=== PATIENT | male | born 1980 | race Caucasian/White ===

== ENCOUNTER 2023-07-15 10:03 | Emergency (ER) | payer SELFPAY ==
[2023-07-15 10:06] VITALS: BP 164/101; PULSE 99; RESP 16; TEMP 36.1; O2SAT 96; BMI 29.9
--- NOTE | 2023-07-15 10:24 | EX.ED.VIS.PS ---
HPI HPI - Psych History of Present Illness Chief Complaint: Mental Health Informant: patient and parent Narrative Narrative: Patient is a 42-year-old male with a reported history of paranoid schizophrenia presenting with mother for concern of worsening mental health. Patient lives with mother. Mother reports has been off his meds for quite a while . She states that he cannot keep a job and cannot afford and does not have any income or insurance. He has had increasingly bizarre behavior lately and recently took his mother shoes and they cannot find him, he threw tantrum yesterday because he could not catch a check but she is not his legal guardian so she can help him. He throughout his mother's diabetic medications. He has been staring off into space and not concentrating. She reports delusions and states is not sleeping. She states he last slept for about 3 hours the night before last. Patient states he has been sleeping and he slept for 7 to 8 hours. Patient only intermittently answers questions and otherwise just stares at me. Has no physical complaints at this time. No report of any HI, SI. Patient currently denies any auditory visual hallucinations. Mother states he has a court order to see counselor but is not currently seeing anyone. PFSH PFSH Home Medications NK 07/15/23 [History Last Taken Unknown] Allergy/AdvReac Type Severity Reaction Status Date / Time No Known Allergies Allergy Verified 07/15/23 10:05 Social History Smoking Status: Current every day smoker tobacco type: cigarettes ROS ROS ED Constitutional Constitutional ED: Denies chills or fever(s) Cardiovascular Cardiovascular: Denies chest pain Respiratory/Chest Respiratory/Chest: Denies cough Gastrointestinal Gastrointestinal: Denies nausea or vomiting Neurologic Neurologic: Denies headache(s) Psychiatric Psychiatric: Reports other Details: Mother reports abnormal behavior ; Denies anxiety, depression, suicidal ideation or suicidal thoughts EXAM Physical Exam Const Vital Signs: 07/15/23 10:06 Temperature 96.9 F L Temperature Source Temporal Pulse Rate 99 Respiratory Rate 16 Blood Pressure 164/101 H Blood Pressure Mean 122 Pulse Ox 96 Oxygen Delivery Method Room Air Positive well nourished and well developed General Appearance ED: well developed and NAD HEENT Reports moist mucous membranes Neck supple Resp normal respiratory effort and clear to auscultation bilaterally Cardio no murmurs Rate: regular rate Rhythm: regular rhythm Extremity normal to inspection Neuro oriented x3 Sensorium / Orientation: alert Motor Exam: muscle tone normal throughout; Negative for general weakness Psych cooperative and affect normal Appearance: grossly normal and appropriate Attitude: calm Activity / Motor Behavior: appropriate eye contact Speech: minimal Mood & Affect: Negative for depressed, elevated mood or labile affect Thought Content: No suicidality, No homicidality, No delusion(s), No hallucination(s) and depersonalization Attention / Concentration: attention grossly intact and concentration grossly impaired Memory / Cognition: memory grossly impaired Insight: limited Judgement: fair Skin Rashes: no rashes MDM MDM MDM Narrative Medical decision making narrative: Patient is evaluated for concern of progression of his schizophrenia. Patient does not appear to be risk himself or others however mother is concerned about his mental health and would like evaluation. Patient is cooperative with this. Patient does seem off but does not have history of behavior concerning for decompensated schizophrenia requiring emergent psychiatric inpatient care. I spoke with Keerthi at the counseling center who states that he actually had an in-house assessment on 06/30 and the story sounds very similar to what he was experiencing 2 weeks ago as well. At that time he did not meet inpatient criteria. He has appointment for a month from now however I do not think it would be prudent to wait that long. She can see him over the next few days and patient and mother are able to go on Thursday between 1 and 2. This is confirmed with Keerthi from the counseling center. Patient's medical workup was largely normal he just has a mild hyperglycemia. Will be given referral for outpatient PCP. Will not start any diabetic medications at this time. Mother counseled that if he has a progression of his symptoms or if they have further concerns he should return to the emergency room. Patient mother agreeable with this plan of care and felt comfortable being discharged in the ER at this time. Lab Data Attestation: I reviewed the patient's lab results. Labs: Laboratory Results - last 24 hr 07/15/23 10:20 WBC 11.6 H RBC 4.88 Hgb 14.8 Hct 43.3 MCV 88.7 MCH 30.3 MCHC 34.2 RDW Std Deviation 42.7 RDW Coeff of Calos 13.1 Plt Count 252 MPV 10.2 Immature Gran % (Auto) 0.400 Neut % (Auto) 77.7 H Lymph % (Auto) 14.4 L [place] % (Auto) 6.0 Eos % (Auto) 1.0 Baso % (Auto) 0.5 Absolute Neuts (auto) 9.0 H Absolute Lymphs (auto) 1.67 Nucleated RBC % 0 Sodium 136 Potassium 4.1 Chloride 103 Carbon Dioxide 30.0 Anion Gap 3 L BUN 6 L Creatinine 0.92 Estim Creat Clear Calc 134.55 Est GFR (MDRD) Af Amer 116 Est GFR (MDRD) Non-Af 96 BUN/Creatinine Ratio 6.5 L Glucose 216 H Calcium 9.2 Urine Opiates Screen NEGATIVE Urine Methadone Screen NEGATIVE Ur Barbiturates Screen NEGATIVE Ur Phencyclidine Scrn NEGATIVE Ur Amphetamines Screen NEGATIVE MDMA (Ecstasy) Screen NEGATIVE U Benzodiazepines Scrn NEGATIVE Urine Cocaine Screen NEGATIVE U Cannabinoids Screen NEGATIVE Ur Drug Screen Comment Ethyl Alcohol < 3.0 Management Discussion w/another healthcare provider: Behavioral health (Arrange for close outpatient behavioral health follow-up through the counseling center. Discussed need for likely case management as well which [facility] will also work on arranging.) Treatment and Re-Evaluation Narrative: Patient remains calm and cooperative in the emergency room Discharge Plan Triage Chief Complaint: Mental Health ED Provider: Diane Cheney Dx/Rx/DC Orders Clinical Impression: Blood glucose elevated, Mental health problem Instructions: ED Schizophrenia, General Prescriptions: No Action NK Referrals: Counseling,Center [Group of Physicians] - (Please follow-up on Thursday at 1 PM) Janie Collins [Non-Staff] - Activity Restrictions/Additional Instructions: The counseling center will try to contact you. Oscar will call to register you for your appointment. Please also follow-up with Janie barroso for medical outpatient follow-up. Disposition Disposition: Home, Self Care
--- NOTE | 2023-07-15 10:30 | ED.RN ---
NO OLD EKG
[2023-07-15 10:36] LABS: Absolute Lymphocyte Count 1.67 X10^3/uL (0.83-4.51); Basophil# 0.06 X10^3/uL; Basophil% 0.5 % (0-1); Eosinophil# 0.11 X10^3/uL; Hematocrit 43.3 % (40-54); Hemoglobin 14.8 g/dL (13.0-16.5); Lymphocyte # 1.67 X10^3/ul (0.83-4.51); Lymphocyte % 14.4 % (19-41); Mean Corp Hgb Conc 34.2 g/dL (32-36); Mean Corpuscular Hgb 30.3 pg (27.0-32.0); Mean Corpuscular Volume 88.7 fL (80-94); Mean Platelet Vol. 10.2 fl (6.2-12.0); Monocyte# 0.69 X10^3/uL; NRBC Flagged by Analyzer 0 % (0-5); Neutrophil # 8.98 X10^3/uL (2.7-7.7); Neutrophil % 77.7 % (47-70); Platelet Count 252 K/mm3 (150-450); RBC Distribution Width CV 13.1 % (11.6-14.6); RBC Distribution Width SD 42.7 fl (35.1-43.9); Red Blood Count 4.88 M/mm3 (4.6-6.2); White Blood Count 11.6 K/mm3 (4.4-11.0)
[2023-07-15 10:49] LABS: Anion Gap 3 (5-15); BUN 6 mg/dL (7-18); BUN/Creat Ratio 6.5 RATIO (10-20); Calcium,Total 9.2 mg/dL (8.5-10.1); Chloride 103 mmol/L (98-107); Creatinine, Serum 0.92 mg/dL (0.70-1.30); EST Glomerular Filtration Rate 96 mL/min (>60); Est Glom Filt Rate - Afr Amer 116 mL/min (>60); Estimated Creatinine Clearance 134.55 ml/min; Glucose 216 mg/dL (74-106); Potassium 4.1 mmol/L (3.5-5.1); Sodium Level 136 mmol/L (136-145)
[2023-07-15 10:52] LABS: Amphetamine Urine VISTA NEGATIVE (<1000 ng/mL); Barbiturate Urine VISTA NEGATIVE (< 200 ng/mL); Benzodiazepine Urine VISTA NEGATIVE (< 200 ng/mL); Cocaine Urine VISTA NEGATIVE (< 300 ng/mL); Ecstacy Urine VISTA NEGATIVE (< 500 ng/mL); Methadone Urine VISTA NEGATIVE (< 300 ng/mL); PCP Urine VISTA NEGATIVE (< 25 ng/mL); THC Urine VISTA NEGATIVE (< 50 ng/mL); Vista UDS pH Range 6
[2023-07-15 10:57] LABS: Alcohol, Blood (Medical)-Serum < 3.0 mg/dL
[2023-07-15 11:09] VITALS: BP 127/74; PULSE 83; RESP 16; TEMP 36.4; O2SAT 100
== END 2023-07-15 11:19 | disposition home or self-care (01) ==
PROVIDERS: Emergency Provider Emergency Medicine; Visit Provider Emergency Medicine
DX: R73.9 Hyperglycemia, unspecified (principal); F17.210 Nicotine dependence, cigarettes, uncomplicated; F91.9 Conduct disorder, unspecified; F99 Mental disorder, not otherwise specified
CPT/HCPCS: 80048; 80307; 80320; 85025; 99282; G0480

== ENCOUNTER 2023-07-27 15:01 | Emergency (ER) | payer MEDICAID, SELFPAY ==
[2023-07-27] VITALS (9 sets, daily range): BP systolic 82–164; BP diastolic 44–101; PULSE 60–98; RESP 15–18; TEMP 36.7; O2SAT 95–100; BMI 28.8
--- NOTE | 2023-07-27 15:20 | EDS_ITS ---
HPI HPI - Psych History of Present Illness Chief Complaint: Mental Health Informant: patient Narrative Narrative: Patient presents with pink slip from the counseling center. He has a history of paranoid schizophrenia and reportedly has not been on any medications due to cost. He was seen in the ER roughly 2 weeks ago with close outpatient follow-up with the counseling center. Patient answers limited questions. Soham slip sent from the counseling center documents that he has a court order to seek mental health treatment and he is not following through. They are concerned his ability to care for himself is deteriorating. [facility] Medical History (Updated 07/27/23 @ 20:[address] Isabel Ham MD) Paranoid schizophrenia Home Medications NK 07/15/23 [History Last Taken Unknown] Allergy/AdvReac Type Severity Reaction Status Date / Time No Known Allergies Allergy Verified 07/27/23 15:13 Social History Smoking Status: Current every day smoker tobacco type: cigarettes ROS ROS ED Constitutional Constitutional ED: Denies chills or fever(s) Eyes Eyes: Denies discharge from eye(s) ENT ENT ED: Denies discharge from eye(s), rhinorrhea or sore throat Cardiovascular Cardiovascular: Denies chest pain Respiratory/Chest Respiratory/Chest: Denies cough or dyspnea Gastrointestinal Gastrointestinal: Denies abdominal pain, nausea or vomiting Musculoskeletal Musculoskeletal: Denies extremity pain Integumentary Denies Abrasions or rash Neurologic Neurologic: Denies headache(s) or weakness Psychiatric Psychiatric: Reports other Details: Patient willing to answer any questions regarding mental health. Allergic/Immunologic Allergic/Immunologic ED: Denies lip swelling or urticaria EXAM Physical Exam Const Vital Signs: 07/27/23 15:13 07/27/23 18:34 07/27/23 17:00 Temperature 98.1 F Temperature Source Oral Pulse Rate 89 92 Respiratory Rate 18 18 18 Blood Pressure 139/101 H 164/97 H Blood Pressure Mean 113 119 Pulse Ox 99 97 Oxygen Delivery Method Room Air Room Air Room Air 07/27/23 16:00 07/27/23 19:00 Temperature Temperature Source Pulse Rate Respiratory Rate 18 Blood Pressure 162/95 H Blood Pressure Mean 112 Pulse Ox 95 Oxygen Delivery Method Room Air Positive well nourished and well developed General Appearance ED: well developed Eyes EOMs intact bilaterally Resp normal respiratory effort and clear to auscultation bilaterally Cardio Rate: regular rate Rhythm: regular rhythm GI non-tender Palpation: soft Neuro Neuro Narrative: Patient is alert to himself, birthdate, year. He will not answer when asked about the date or president. Psych Attitude: calm Activity / Motor Behavior: avoids eye contact Speech: minimal Mood & Affect: flat affect Skin Lesions: no lesions Rashes: no rashes MDM MDM MDM Narrative Medical decision making narrative: Labwork for psychiatric clearance obtained. Lab Data Attestation: I reviewed the patient's lab results. Labs: Laboratory Results - last 24 hr 07/27/23 07/27/23 07/27/23 15:25 15:30 19:40 WBC 11.1 H RBC 4.97 Hgb 15.0 Hct 43.5 MCV 87.5 MCH 30.2 MCHC 34.5 RDW Std Deviation 41.3 RDW Coeff of Calos 12.8 Plt Count 253 MPV 9.9 Immature Gran % (Auto) 0.700 Neut % (Auto) 70.7 H Lymph % (Auto) 19.9 [place] % (Auto) 6.7 Eos % (Auto) 1.4 Baso % (Auto) 0.6 Absolute Neuts (auto) 7.8 H Absolute Lymphs (auto) 2.20 Nucleated RBC % 0 Sodium 129 L 137 Potassium 3.6 3.8 Chloride 95 L 102 Carbon Dioxide 29.0 29.0 Anion Gap 5 6 BUN 12 12 Creatinine 0.76 0.75 Estim Creat Clear Calc 155.70 157.78 Est GFR (MDRD) Af Amer 145 148 Est GFR (MDRD) Non-Af 120 122 BUN/Creatinine Ratio 15.7 16.0 Glucose 109 H 144 H Calcium 9.3 8.6 Urine Opiates Screen NEGATIVE Urine Methadone Screen NEGATIVE Ur Barbiturates Screen NEGATIVE Ur Phencyclidine Scrn NEGATIVE Ur Amphetamines Screen NEGATIVE MDMA (Ecstasy) Screen NEGATIVE U Benzodiazepines Scrn NEGATIVE Urine Cocaine Screen NEGATIVE U Cannabinoids Screen NEGATIVE Ur Drug Screen Comment Ethyl Alcohol < 3.0 Treatment and Re-Evaluation Narrative: CBC reveals a white count 11.1 with 70% neutrophils. Hemoglobin 15. Chemistry studies significant for a sodium of 129. Urine tox screen is negative and EtOH is less than 3. Patient became more agitated and tried to leave the emergency room. He did require sedation with 20 mg of IM Geodon. IV line is initiated and patient is given normal saline fluids. Repeat BMP is obtained and sodium is improved to 137. I am notified by staff that patient has been accepted at [place]. Arrangements will be made for transfer. Discharge Plan Triage Chief Complaint: Mental Health ED Provider: Isabel Ham Dx/Rx/DC Orders Clinical Impression: Paranoid schizophrenia Prescriptions: No Action NK Primary Care Provider: Care Physician,No Primary Referrals: Care Physician,No Primary [Primary Care Provider] - Disposition Disposition: Psychiatric Hospital or Unit
--- NOTE | 2023-07-27 15:24 | ED.RN ---
per dr king patient does not require a 1:1 sitter at this time.
[2023-07-27 15:45] LABS: Amphetamine Urine VISTA NEGATIVE (<1000 ng/mL); Barbiturate Urine VISTA NEGATIVE (< 200 ng/mL); Benzodiazepine Urine VISTA NEGATIVE (< 200 ng/mL); Cocaine Urine VISTA NEGATIVE (< 300 ng/mL); Ecstacy Urine VISTA NEGATIVE (< 500 ng/mL); Methadone Urine VISTA NEGATIVE (< 300 ng/mL); PCP Urine VISTA NEGATIVE (< 25 ng/mL); THC Urine VISTA NEGATIVE (< 50 ng/mL); Vista UDS pH Range 6
[2023-07-27 15:48] LABS: Absolute Neutrophil Count 7.8 X10^3/uL (2.0-7.7); Basophil# 0.07 X10^3/uL; Basophil% 0.6 % (0-1); Eosinophil# 0.15 X10^3/uL; Eosinophils% 1.4 % (0-5); Hematocrit 43.5 % (40-54); Lymphocyte % 19.9 % (19-41); Mean Corp Hgb Conc 34.5 g/dL (32-36); Mean Corpuscular Hgb 30.2 pg (27.0-32.0); Mean Corpuscular Volume 87.5 fL (80-94); Mean Platelet Vol. 9.9 fl (6.2-12.0); Monocyte# 0.74 X10^3/uL; Monocyte% 6.7 % (0-10); NRBC Flagged by Analyzer 0 % (0-5); Neutrophil # 7.82 X10^3/uL (2.7-7.7); Neutrophil % 70.7 % (47-70); Platelet Count 253 K/mm3 (150-450); RBC Distribution Width CV 12.8 % (11.6-14.6); RBC Distribution Width SD 41.3 fl (35.1-43.9); Red Blood Count 4.97 M/mm3 (4.6-6.2); White Blood Count 11.1 K/mm3 (4.4-11.0)
[2023-07-27 15:50] LABS: POSITIVE COUNT NO; POSITIVE DIFFERENTIAL NO; POSITIVE MORPHOLOGY NO
[2023-07-27 15:55] LABS: Alcohol, Blood (Medical)-Serum < 3.0 mg/dL
[2023-07-27 15:56] LABS: Anion Gap 5 (5-15); BUN 12 mg/dL (7-18); BUN/Creat Ratio 15.7 RATIO (10-20); Calcium,Total 9.3 mg/dL (8.5-10.1); Chloride 95 mmol/L (98-107); Creatinine, Serum 0.76 mg/dL (0.70-1.30); EST Glomerular Filtration Rate 120 mL/min (>60); Est Glom Filt Rate - Afr Amer 145 mL/min (>60); Glucose 109 mg/dL (74-106); Potassium 3.6 mmol/L (3.5-5.1); Sodium Level 129 mmol/L (136-145)
--- NOTE | 2023-07-27 17:20 | ED.RN ---
Pt is refusing sodium replacement as ordered. Educated on his sodium levels and concern with his level being low. Pt states I'm not going to stay here that long. Can you call me a ride? This RN educated pt that he's unable to leave d/t being pink slipped and what that means. Pt appears shocked and again asks to go home. Ongoing re-education provided. Pt wants cigarette, offered nicotine order if pt will put on gown. Pt not agreeable at this time.
--- NOTE | 2023-07-27 17:40 | ED.RN ---
Pt asked again to remove personal clothing but is non compliant. Pt insists he will not remove his clothing. Pt educated on need for removal and that it has to happen and that we'd rather he do it himself without requiring our assistance but it is his choice. Pt agitated and yelling at staff.
[2023-07-27] MEDS: Ziprasidone IM 20 MG/ML VIAL IM (17:54)
[2023-07-27] MEDS: 0.9% Normal Saline (1000mL) 1,000 ML 150 ML IV (18:17)
[2023-07-27] MEDS: 0.9% Normal Saline (1000mL) 1,000 ML 1000 ML IV (18:17)
[2023-07-27 20:05] LABS: Anion Gap 6 (5-15); BUN 12 mg/dL (7-18); Calcium,Total 8.6 mg/dL (8.5-10.1); Chloride 102 mmol/L (98-107); Creatinine, Serum 0.75 mg/dL (0.70-1.30); EST Glomerular Filtration Rate 122 mL/min (>60); Est Glom Filt Rate - Afr Amer 148 mL/min (>60); Estimated Creatinine Clearance 157.78 ml/min; Glucose 144 mg/dL (74-106); Potassium 3.8 mmol/L (3.5-5.1); Sodium Level 137 mmol/L (136-145)
[2023-07-28] VITALS (9 sets, daily range): BP systolic 92–133; BP diastolic 57–86; PULSE 58–69; RESP 16–19; TEMP 36.6–36.7; O2SAT 92–100
== END 2023-07-28 07:33 ==
PROVIDERS: Emergency Provider Emergency Medicine; Visit Provider Emergency Medicine
DX: F20.0 Paranoid schizophrenia (principal); F17.210 Nicotine dependence, cigarettes, uncomplicated
CPT/HCPCS: 80048; 80307; 80320; 85025; 99283; J7030; A4216; G0480; J3486

== ENCOUNTER 2024-03-02 22:27 | Emergency (ER) | payer MEDICAID, SELFPAY ==
[2024-03-02 22:28] VITALS: BP 176/95; PULSE 114; RESP 25; TEMP 37.2; O2SAT 93
--- NOTE | 2024-03-02 22:45 | EKG12_ITS ---
Test Reason : [facility] Blood Pressure : / mmHG Vent. Rate : 103 BPM Atrial Rate : 103 BPM P-R Int : 164 ms QRS Dur : 086 ms QT Int : 340 ms P-R-T Axes : 067 028 024 degrees QTc Int : 445 ms Sinus tachycardia with Premature atrial complexes Otherwise normal ECG Confirmed by Fabian Torres ([id number]), school photograph editor TERRY DAILEY ([id number]) on 03/04/2024 1:31:37 PM Referred By: Confirmed By:Fabian Torres
[2024-03-02] MEDS: DiphenhydrAMINE 50 MG/ML Syringe 25 MG IM (22:54)
[2024-03-02] MEDS: Haloperidol Lactate 5 MG/ML Vial IM (22:55)
[2024-03-02] MEDS: LORazepam 2 MG/ML Syringe IM (22:55)
--- NOTE | 2024-03-02 23:00 | EDS_ITS ---
HPI HPI - Psych History of Present Illness Chief Complaint: Mental Health Narrative Narrative: Chief complaint and HPI: Psychiatric evaluation. History taken by EMS report as well as chart review. Patient is a 43-year-old male with history of paranoid schizophrenia who presents for psychiatric evaluation. Per report, patient was at the [facility] when he started acting abnormal. He was slow to respond so EMS was called for further evaluation. Per report, patient was recently discharged from [facility]. On chart review, patient was seen in our hospital in July for mental health evaluation. At that time he was pink slipped. He was further found to have hyponatremia that resolved with fluids. History unable to be obtained by patient. He is alert and oriented to self. He states the year is either 2023 or 2024. He will not answer the rest of my questions. He is staring off in space. Intermittently agitated. Trying to constantly leave and not following directions. Review of systems: See HPI Medications: As listed on the chart Allergies: As listed on the chart PFSH: Per chart Vital signs: As listed on the chart. Reviewed. Physical exam: Gen: Alert Head: Normocephalic, atraumatic Eyes: No sclera icterus, conjunctiva clear, PERRL, EOMI ENT: Moist mucous membranes Neck: Trachea midline, No JVD CV: Tachycardic, regular rhythm, no murmurs, no peripheral edema Resp: Lungs CTA BL, no w/r/c GI: Abd soft, non-distended, non-tender, no r/r/g Musc: Moves all extremity , no deformity Skin: Warm, dry Neuro: Alert, oriented to self but states the year is either 2023 or 2024-will answer the rest of my questions, grossly intact Psych: Uncooperative, flat affect, appears paranoid, intermittently agitated, trying to constantly leave, not following directions, keeps trying to drink water out of the faucet in the room [facility] Medical History (Updated 08/05/23 @ 00:01 by Jaun Wong) Paranoid schizophrenia Home Medications ?Medication ?Instructions ?Recorded ?Last Taken ?Type aripiprazole 5 mg tablet 5 mg PO DAILY 03/02/24 Unknown History hydroxyzine HCl 50 mg tablet 50 mg PO BID PRN PRN UNKNOWN 03/02/24 Unknown History lisinopril 10 mg tablet 10 mg PO DAILY 03/02/24 Unknown History risperidone 120 mg subcutaneous 120 mg subcut QMONTH 03/02/24 Unknown History extended release suspension syringe (Perseris) trazodone 50 mg tablet 50 mg PO QHS 03/02/24 Unknown History Allergy/AdvReac Type Severity Reaction Status Date / Time No Known Allergies Allergy Verified 03/02/24 22:36 Social History Smoking Status: Current every day smoker tobacco type: cigarettes EXAM Physical Exam Const Vital Signs: 03/02/24 22:28 03/02/24 23:28 03/03/24 00:00 Temperature 99.0 F Temperature Source Oral Pulse Rate 114 H 92 89 Respiratory Rate 25 H 12 16 Blood Pressure 176/95 H 165/74 H 154/75 H Blood Pressure Mean 122 104 101 Pulse Ox 93 99 99 Oxygen Delivery Method Room Air Room Air Room Air MDM MDM MDM Narrative Medical decision making narrative: 43-year-old male with history of paranoid schizophrenia presents for mental health evaluation. Patient is in a paranoid state. Oriented only to self. Flat affect. Intermittently agitated. Uncooperative. Differential diagnosis includes but is not limited to paranoia, schizophrenia, hyponatremia, electrolyte abnormality. We attempted to redirect the patient multiple times. He is not redirectable. Becoming agitated. Trying to leave. Therefore, Haldo l, Ativan, Benadryl given to help with his symptoms. Patient was pink slipped. He will require inpatient psychiatric placement. Crisis team involved. They state that the patient is currently in the process of obtaining a guardian. He currently does not have a guardian. CMP shows hypokalemia 124. Patient's altered mental status may be secondary to hyponatremia versus mental health. Patient has a history of hyponatremia on previous labs at 129. Improved with 1 L fluid. Patient's mother also informed nursing that the patient has a history of hyponatremia in the past. Unknown his baseline. will give NS bolus and reassess sodium level. Patient has hypokalemia of 3.2. P.o. potassium ordered. No JOSEPH. AST mildly elevated at 46. TSH unremarkable. Urine drug screen negative. Alcohol level unremarkable. CBC pending at this time. Patient was signed out to oncoming physician Dr. Akins. He will wait CBC and repeat sodium level. If sodium level does not improve patient will require admission for hyponatremia. If sodium improves patient will need to be placed in inpatient psychiatric facility. Final disposition pending final labs. EKG: Interpreted by me/EM physician: EKG shows sinus tachycardia with PACs. No acute ischemic changes. Heart rate 103. Impression: 1. Altered mental status, paranoid schizophrenia versus hyponatremia 2. History of hyponatremia 3. History of paranoid schizophrenia 4. Mild hypokalemia Lab Data Labs: Laboratory Results - last 24 hr 03/02/24 23:05 Sodium 124 L Potassium 3.2 L Chloride 88 L Carbon Dioxide 23.0 Anion Gap 13 BUN 4 L Creatinine 0.70 Est GFR (MDRD) Af Amer 159 Est GFR (MDRD) Non-Af 131 BUN/Creatinine Ratio 5.7 L Glucose 144 H Calcium 8.8 Total Bilirubin 0.90 AST 46 H ALT 34 Alkaline Phosphatase 83 Total Protein 6.8 Albumin 4.0 Globulin 2.8 Albumin/Globulin Ratio 1.4 TSH 1.550 Ethyl Alcohol 6.0 Discharge Plan Triage Chief Complaint: Mental Health ED Provider: Lance Reyna Dx/Rx/DC Orders Prescriptions: No Action hydroxyzine HCl 50 mg tablet 50 mg PO BID PRN PRN (Reason: UNKNOWN) aripiprazole 5 mg tablet 5 mg PO DAILY lisinopril 10 mg tablet 10 mg PO DAILY trazodone 50 mg tablet 50 mg PO QHS Perseris 120 mg suspension,extended rel syring 120 mg subcut QMONTH Primary Care Provider: Care Physician,No Primary Referrals: Care Physician,No Primary [Primary Care Provider] - Print Language: Cymro
[2024-03-02 23:28] VITALS: BP 165/74; PULSE 92; RESP 12; O2SAT 99
[2024-03-02 23:53] LABS: ALB/GLOB Ratio 1.4 RATIO (0.9-2.4); AST(SGOT) 46 U/L (15-37); Alanine Aminotransfer ALT/SGPT 34 U/L (16-61); Alkaline Phosphatase 83 U/L (45-117); Anion Gap 13 (5-15); BUN 4 mg/dL (7-18); BUN/Creat Ratio 5.7 RATIO (10-20); Calcium,Total 8.8 mg/dL (8.5-10.1); Chloride 88 mmol/L (98-107); EST Glomerular Filtration Rate 131 mL/min (>60); Est Glom Filt Rate - Afr Amer 159 mL/min (>60); Globulin 2.8 g/dL (2.2-4.2); Glucose 144 mg/dL (74-106); Potassium 3.2 mmol/L (3.5-5.1); Protein, Total 6.8 g/dL (6.4-8.2); Sodium Level 124 mmol/L (136-145)
[2024-03-03] VITALS (9 sets, daily range): BP systolic 91–154; BP diastolic 59–100; PULSE 63–102; RESP 15–18; TEMP 37; O2SAT 91–99
[2024-03-03] MEDS: 0.9% Normal Saline (1000mL) 1,000 ML 999 ML IV ×2 (00:03→02:42)
[2024-03-03 00:39] LABS: Bacteria 0 SEEN /hpf (None Seen); Mucous, Urine 0 SEEN /hpf (<or=2+); Red Blood Cells-Urine 0 SEEN /hpf (0-5); Squamous Epithelial Cells - UA 0 SEEN /hpf (0-5); White Blood Cells 0 SEEN /hpf (0-5)
[2024-03-03 00:40] LABS: Color, Urine Yellow (Yellow); Glucose, Dipstick Normal (Normal); Ketone-Dipstick 15 mg/dl (Negative); Leukocyte Esterase-Dipstick Negative /ul (Negative); Nitrite-Dipstick Negative (Negative); Occult Blood-Urine Negative /ul (Negative); Protein-Dipstick Negative (Negative); Specific Gravity, Urine 1.005 (1.002-1.030); Urine Bilirubin Dipstick Negative (Negative); Urine Clarity Clear (Clear); Urine Urobilinogen Normal (Normal); Urine pH 6.5 (5.0 - 8.0)
[2024-03-03 01:38] LABS: Absolute Lymphocyte Count 2.48 X10^3/uL (0.83-4.51); Absolute Neutrophil Count 12.8 X10^3/uL (2.0-7.7); Basophil# 0.07 X10^3/uL; Basophil% 0.4 % (0-1); Eosinophil# 0.19 X10^3/uL; Eosinophils% 1.1 % (0-5); Hematocrit 34.2 % (40-54); Hemoglobin 12.7 g/dL (13.0-16.5); Lymphocyte # 2.48 X10^3/ul (0.83-4.51); Lymphocyte % 14.6 % (19-41); Mean Corp Hgb Conc 37.1 g/dL (32-36); Mean Corpuscular Hgb 31.2 pg (27.0-32.0); Monocyte# 1.39 X10^3/uL; Monocyte% 8.2 % (0-10); NRBC Flagged by Analyzer 0 % (0-5); Neutrophil # 12.79 X10^3/uL (2.7-7.7); Neutrophil % 75.2 % (47-70); Platelet Count 240 K/mm3 (150-450); RBC Distribution Width CV 12.8 % (11.6-14.6); Red Blood Count 4.07 M/mm3 (4.6-6.2)
[2024-03-03 02:02] LABS: Amphetamine Urine VISTA NEGATIVE (<1000 ng/mL); Barbiturate Urine VISTA NEGATIVE (< 200 ng/mL); Benzodiazepine Urine VISTA NEGATIVE (< 200 ng/mL); Cocaine Urine VISTA NEGATIVE (< 300 ng/mL); Ecstacy Urine VISTA NEGATIVE (< 500 ng/mL); Methadone Urine VISTA NEGATIVE (< 300 ng/mL); PCP Urine VISTA NEGATIVE (< 25 ng/mL); THC Urine VISTA NEGATIVE (< 50 ng/mL); Vista UDS pH Range 6
[2024-03-03] MEDS: Potassium Chloride Oral Tablet 20 MEQ 40 MEQ PO (02:16)
[2024-03-03 02:27] LABS: Sodium Level 127 mmol/L (136-145)
[2024-03-03 02:49] LABS: Magnesium 1.7 mg/dL (1.6-2.6)
[2024-03-03 05:03] LABS: Anion Gap 7 (5-15); BUN 3 mg/dL (7-18); BUN/Creat Ratio 4.1 RATIO (10-20); Chloride 97 mmol/L (98-107); Creatinine, Serum 0.73 mg/dL (0.70-1.30); EST Glomerular Filtration Rate 126 mL/min (>60); Est Glom Filt Rate - Afr Amer 153 mL/min (>60); Glucose 100 mg/dL (74-106); Potassium 3.4 mmol/L (3.5-5.1); Sodium Level 129 mmol/L (136-145)
--- NOTE | 2024-03-03 06:19 | ED.RN ---
CHART FAXED, CRISIS CALLED FOR EVAL
== END 2024-03-03 10:14 ==
PROVIDERS: Emergency Medicine; Emergency Provider Surgery; Visit Provider Surgery
DX: F20.0 Paranoid schizophrenia (principal); R41.82 Altered mental status, unspecified; E87.1 Hypo-osmolality and hyponatremia; E87.6 Hypokalemia; I49.1 Atrial premature depolarization; R74.01 Elevation of levels of liver transaminase levels; F17.210 Nicotine dependence, cigarettes, uncomplicated; Z79.899 Other long term (current) drug therapy
CPT/HCPCS: 80048; 80053; 80307; 81001; 82077; 83735; 84295; 84443; 85025; 93005; 96360; 96361; 96372; 99284; J7030; A4216

== ENCOUNTER 2024-04-20 13:57 | Inpatient (IN) | payer BC, MEDICAID, SELFPAY ==
[2024-04-20 13:58] VITALS: BP 147/100; PULSE 125; RESP 16; TEMP 36.6; O2SAT 99; BMI 32.8
--- NOTE | 2024-04-20 14:23 | CM.ED ---
Addendum entered and electronically signed by Lilli Tapia 04/20/24 15:29: Updated information: Received message from Buffy in Crisis at [facility] and upon further investigation with patient's heel caser and with AOT coordinator at the court, patient is no longer on AOT. Due to patient not being active with AOT, patient can MH assessment by ED SW or by Crisis, depending on when patient is medically cleared. -MONROE Ellsworth Original Note: Social Work Reason for Intervention: Mental Health Noted patient's presentation to [facility] for mental health reasons. After chart review, noted patient has history of paranoid schizophrenia, and was most recently hospitalized at [facility] in February of 2024. Also hospitalized in July at [facility]. Noted in prior documentation by [facility] that patient is court ordered to treatment, which [facility] Spoke with June from Crisis at [facility] and confirmed patient is still noted to have court ordered treatment and was to see psych services later today. Also noted that patient had an appointment with Lyubov Garcia, the guardianship gravity prospecting supervisor, at [facility] this morning. It appears patient may have been assigned a legal guardian as of this morning. Called Guardian Soundscriber Mechanic at [facility], Lyubov Garcia at [phone] who confirms was granted guardianship this morning. Patient did not show up to the court date. Lyubov agrees to send over letter of guardianship when receives this from probate court. Lyubov confirms patient is part of AOT program. Lyubov shares that patient has been a [place] for the last 3 weeks or so, and is currently homeless, not taking medications. Reports patient has been escalating in symptoms and presenting as despondent, just staring ahead. Per Lyubov, patient does have diabetes and HTN, and not certain patient has been taking medications. Updated nursing and physician. Plan: Due to patient being in the AOT program, when medically cleared to be assessed by crisis. -BRIAN Ellsworth
--- NOTE | 2024-04-20 14:30 | EDS_ITS ---
HPI HPI - Psych History of Present Illness Chief Complaint: Mental Health Informant: patient and police/steward/stewardess [employer] class Onset/Context/Timing Onset: Today Timing: Continuous Current Severity: Moderate Maximum Severity: Moderate Narrative Narrative: 43-year-old male reportedly history of schizophrenia currently he is under [facility] due to his underlying mental illness. I believe he staying at the [facility]. Patient showed up today at the court house thinking that he had to be a court and that was not the case. Then he started asking people for a ride to another local city. When that was not happening he called an ambulance to be brought to the emergency department. He was hoping to get a ride to another area. He denies any medical complaints. He is not real forthcoming with information and seems to be undergoing a mental health crisis. Patient seems very anxious. Prior similar symptoms: Yes Recent Illness/Hospitalization: No PFSH PFSH Medical History Paranoid schizophrenia Home Medications ?Medication ?Instructions ?Recorded ?Last Taken ?Type aripiprazole 5 mg tablet 5 mg PO DAILY 03/02/24 Unknown History hydroxyzine HCl 50 mg tablet 50 mg PO BID PRN PRN UNKNOWN 03/02/24 Unknown History lisinopril 10 mg tablet 10 mg PO DAILY 03/02/24 Unknown History risperidone 120 mg subcutaneous 120 mg subcut QMONTH 03/02/24 Unknown History extended release suspension syringe (Perseris) trazodone 50 mg tablet 50 mg PO QHS 03/02/24 Unknown History Allergy/AdvReac Type Severity Reaction Status Date / Time No Known Allergies Allergy Verified 04/20/24 13:58 Social History Smoking Status: Current every day smoker tobacco type: cigarettes ROS ROS ED ROS Narrative Patient not forthcoming with information and answers very few questions. Review of Systems ROS Unobtainable: due to mental condition EXAM Physical Exam Narrative Exam Narrative: 43-year-old male vital signs are stable afebrile. H EENT exam pupils round reactive light. Neck nontender. Lungs clear. Heart tachycardic rate 110 no murmur. Chest wall ribs nontender. Abdomen soft nontender. Back nontender. Moving all 4 extremities. Nontender. No wounds. No track morales. No edema. Neurologically is awake. He answers few questions. He is alert. He seems paranoid, anxious and withdrawn. Currently he is not verbally or physically violent. He does seem uncapped and smells like he has not showered for several days. Const Vital Signs: 04/20/24 13:58 Temperature 98 F Temperature Source Temporal Pulse Rate 125 H Respiratory Rate 16 Blood Pressure 147/100 H Blood Pressure Mean 115 Pulse Ox 99 Oxygen Delivery Method Room Air Positive well nourished and well developed; Negative for obese, cachectic, con tractures or unkempt General Appearance ED: well developed and NAD; Negative for unkempt, cachectic or contractures Nutritional Appearance: Negative for cachectic or obese HEENT Reports moist mucous membranes atraumatic; Negative for trauma or tenderness Eyes PERRL and EOMs intact bilaterally Neck no lymphadenopathy, supple and no JVD Resp normal respiratory effort and clear to auscultation bilaterally Cardio S1 normal heart sound, S2 normal heart sound and no murmurs Rate: tachycardic GI non-tender, non-distended and no masses Palpation: soft; Negative for tender or guarding Back/Spine no CVA tenderness Extremity normal to inspection General Extremety ED: Negative for edema or tenderness General Extremity: Negative for edema Neuro CN's II-XII intact bilaterally Neuro Narrative: Awake and alert. Answers limited questions. Follows limited commands. No obvious focal motor deficits. He does clinical data associate both hands. He does do dorsi plantarflexion. Sensorium / Orientation: alert, oriented to person and oriented to place Motor Exam: strength 5/5 throughout Psych speech normal; Negative for affect normal Appearance: disheveled; Negative for unkempt Attitude: paranoid, withdrawn, evasive and guarded Activity / Motor Behavior: fidgetting and restless Speech: minimal Mood & Affect: anxious Thought Process: disorganized Attention / Concentration: concentration grossly impaired Insight: poor Judgement: poor Skin Lesions: no lesions Rashes: no rashes Trauma: Negative for abrasion Wounds: Negative for amputation MDM MDM MDM Narrative Medical decision making narrative: 43-year-old male with a history of schizophrenia reportedly. Appears to be unde r a paranoid schizophrenic crisis. Does not seem like he is able to take care of himself. Is very limited in answering questions and is not forthcoming with information. Will need to be pink slipped for his own safety. He is not voicing any concerns of suicidality or being homicidal but there is many questions he will need an answer. Will undergo ED mental health evaluation and evaluation by one of our social workers. Repeat exam at 4:38 PM patient is resting comfortably. He was given Ativan. I do not have a source for his leukocytosis. He does not have any source of infection either from his workup or his exam. I do not think he needs started on IV antibiotics. His second issue is his significant hyponatremia 121. Given that I cannot really medically clear him I will not be able to get a psychiatric facility to take him at this time to get some of this corrected. I have the hospitalist on page for admission. History & Record Review Discussion w/independent historian: Patient Additional record(s) reviewed:: Prior inpatient record, Prior outpatient record, Prior ED visit and Prior labs Lab Data Attestation: I reviewed the patient's lab results. Lab results narrative: CBC shows a white count of 21.1. H&H of 14 and 40. Platelets 282. Electrolytes show a sodium of 121. Chloride of 86. Gap 9. BUN and creatinine of 5 and 0.8. Glucose 161. Tox screen and alcohol negative. Urinalysis negative. Chest x-ray no acute process. Labs: Laboratory Results - last 24 hr 04/20/24 04/20/24 14:45 14:53 WBC 21.1 H RBC 4.81 Hgb 14.6 Hct 40.4 MCV 84.0 MCH 30.4 MCHC 36.1 H RDW Std Deviation 41.5 RDW Coeff of Calos 13.4 Plt Count 282 MPV 10.3 Immature Gran % (Auto) 1.500 H Neut % (Auto) 82.6 H Lymph % (Auto) 8.4 L [place] % (Auto) 6.9 Eos % (Auto) 0.2 Baso % (Auto) 0.4 Absolute Neuts (auto) 17.4 H Absolute Lymphs (auto) 1.77 Nucleated RBC % 0 Sodium 121 L Potassium 3.9 Chloride 86 L Carbon Dioxide 25.0 Anion Gap 9 BUN 5 L Creatinine 0.84 Estim Creat Clear Calc 148.09 Est GFR (MDRD) Af Amer 130 Est GFR (MDRD) Non-Af 108 BUN/Creatinine Ratio 6.0 L Glucose 161 H Calcium 8.7 Urine Color Straw Urine Clarity Clear Urine pH 6.5 Ur Specific [place] 1.005 Urine Protein Negative Urine Glucose (UA) Normal Urine Ketones Negative Urine Occult Blood Negative Urine Nitrite Negative Urine Bilirubin Negative Urine Urobilinogen Normal Ur Leukocyte Esterase Negative Urine RBC 0 SEEN Urine WBC 0 SEEN Ur Squamous Epith Cells 0-5 SEEN Urine Bacteria 0 SEEN Urine Mucus 0 SEEN Urine Opiates Screen NEGATIVE Urine Methadone Screen NEGATIVE Ur Barbiturates Screen NEGATIVE Ur Phencyclidine Scrn NEGATIVE Ur Amphetamines Screen NEGATIVE MDMA (Ecstasy) Screen NEGATIVE U Benzodiazepines Scrn NEGATIVE Urine Cocaine Screen NEGATIVE U Cannabinoids Screen NEGATIVE Ur Drug Screen Comment Ethyl Alcohol < 3.0 Radiography Chest X-Ray - ED: 2 View, Read by ED Physician, Normal, Heart, Lungs, Mediastinum, No Acute Disease and Chronic Changes Diagnostic Testing: Chest x-ray, 2 views, AP and lateral, interpreted by myself shows no acute abnormality. Normal cardiac silhouette. Normal lung das. Discharge Plan Dx/Rx/DC Orders Clinical Impression: Chronic schizophrenia with acute exacerbation, Acute hyponatremia, Leukocytosis Disposition Disposition: Acute Care Hospital [facility]
[2024-04-20 15:05] LABS: Absolute Lymphocyte Count 1.77 X10^3/uL (0.83-4.51); Absolute Neutrophil Count 17.4 X10^3/uL (2.0-7.7); Basophil# 0.09 X10^3/uL; Basophil% 0.4 % (0-1); Eosinophil# 0.05 X10^3/uL; Eosinophils% 0.2 % (0-5); Hematocrit 40.4 % (40-54); Hemoglobin 14.6 g/dL (13.0-16.5); Lymphocyte # 1.77 X10^3/ul (0.83-4.51); Lymphocyte % 8.4 % (19-41); Mean Corp Hgb Conc 36.1 g/dL (32-36); Mean Corpuscular Hgb 30.4 pg (27.0-32.0); Mean Platelet Vol. 10.3 fl (6.2-12.0); Monocyte# 1.45 X10^3/uL; Monocyte% 6.9 % (0-10); NRBC Flagged by Analyzer 0 % (0-5); Neutrophil # 17.39 X10^3/uL (2.7-7.7); Neutrophil % 82.6 % (47-70); Platelet Count 282 K/mm3 (150-450); RBC Distribution Width CV 13.4 % (11.6-14.6); RBC Distribution Width SD 41.5 fl (35.1-43.9); Red Blood Count 4.81 M/mm3 (4.6-6.2); White Blood Count 21.1 K/mm3 (4.4-11.0)
[2024-04-20 15:24] LABS: Anion Gap 9 (5-15); BUN 5 mg/dL (7-18); Calcium,Total 8.7 mg/dL (8.5-10.1); Chloride 86 mmol/L (98-107); Creatinine, Serum 0.84 mg/dL (0.70-1.30); EST Glomerular Filtration Rate 108 mL/min (>60); Est Glom Filt Rate - Afr Amer 130 mL/min (>60); Estimated Creatinine Clearance 148.09 ml/min; Glucose 161 mg/dL (74-106); Potassium 3.9 mmol/L (3.5-5.1); Sodium Level 121 mmol/L (136-145)
[2024-04-20 15:25] LABS: Alcohol, Blood (Medical)-Serum < 3.0 mg/dL
[2024-04-20 15:32] LABS: Amphetamine Urine VISTA NEGATIVE (<1000 ng/mL); Barbiturate Urine VISTA NEGATIVE (< 200 ng/mL); Benzodiazepine Urine VISTA NEGATIVE (< 200 ng/mL); Cocaine Urine VISTA NEGATIVE (< 300 ng/mL); Ecstacy Urine VISTA NEGATIVE (< 500 ng/mL); Methadone Urine VISTA NEGATIVE (< 300 ng/mL); PCP Urine VISTA NEGATIVE (< 25 ng/mL); THC Urine VISTA NEGATIVE (< 50 ng/mL); Vista UDS pH Range 6
[2024-04-20 15:56] LABS: Bacteria 0 SEEN /hpf (None Seen); Mucous, Urine 0 SEEN /hpf (<or=2+); Red Blood Cells-Urine 0 SEEN /hpf (0-5); White Blood Cells 0 SEEN /hpf (0-5)
[2024-04-20] MEDS: LORazepam 1 MG Tablet PO ×2 (16:03→22:40)
[2024-04-20 16:20] LABS: Color, Urine Straw (Yellow); Glucose, Dipstick Normal (Normal); Ketone-Dipstick Negative (Negative); Leukocyte Esterase-Dipstick Negative /ul (Negative); Nitrite-Dipstick Negative (Negative); Occult Blood-Urine Negative /ul (Negative); Protein-Dipstick Negative (Negative); Specific Gravity, Urine 1.005 (1.002-1.030); Urine Bilirubin Dipstick Negative (Negative); Urine Clarity Clear (Clear); Urine Urobilinogen Normal (Normal); Urine pH 6.5 (5.0 - 8.0)
[2024-04-20 16:38] LABS: Squamous Epithelial Cells - UA 0-5 SEEN /hpf (0-5)
--- NOTE | 2024-04-20 16:40 | RAD_ITS ---
EXAM: XR CHEST, 2 VIEWS CLINICAL INDICATION: leukocytosis TECHNIQUE: Frontal and lateral views of the chest. COMPARISON: No relevant prior studies available. FINDINGS: LUNGS AND PLEURAL SPACES: There is minimal retrocardiac opacity which may represent early left lower lobe pneumonia. No pneumothorax. No effusion. HEART: Unremarkable. Cardiac silhouette not enlarged. MEDIASTINUM: Central airways and mediastinal contour are unremarkable. BONES/JOINTS: Unremarkable. No acute fracture. SOFT TISSUES: Unremarkable. RAD/Chest PA and Lateral IMPRESSION: Retrocardiac opacity which may represent minimal early left lower lobe pneumonia. Electronically Signed: Jonathan Galarza MD at 17:18 EST ,
--- NOTE | 2024-04-20 17:46 | HP.PCM.HOS_ITS ---
HPI - General General Date of Admission: 04/20/24 Date of Service: 04/20/24 Chief Complaint: Hyponatremia HPI Narrative VIDYA CARRANZA, is a 43-year-old male with history of paranoid schizophrenia presented [facility] 04/20/2024 due to underlying worsening of his mental illness. Patient is currently under guardianship of [facility] due to his mental illness and is thought to be presently staying at a hotel. He showed up today at the court house thinking he had a court appointment but that was not the case and then he started asking people for a ride to another city. When that was not happening he called EMS who brought him to the ED. Patient found to have a sodium of 121 down from 129 in February and a white blood cell count of 21 so hospitalist contacted for admission for workup and medical clearance for placement at psychiatric facility. Patient has pink slip on chart from ED provider. Patient evaluated at bedside and he is very suspicious and reluctant to engage. Would not answer any ROS questions and continued to ask if he could leave and go to [place]. Discussed importance of working up and treating his sodium as if it goes down further he could be at risk of having a seizure and that is why it is important for him to stay which patient responded that that is the case he at least once his pajama pants. [facility] Medical History Paranoid schizophrenia Home Medications ?Medication ?Instructions ?Recorded ?Last Taken ?Type aripiprazole 5 mg tablet 5 mg PO DAILY 03/02/24 Unknown History hydroxyzine HCl 50 mg tablet 50 mg PO BID PRN PRN UNKNOWN 03/02/24 Unknown History lisinopril 10 mg tablet 10 mg PO DAILY 03/02/24 Unknown History risperidone 120 mg subcutaneous 120 mg subcut QMONTH 03/02/24 Unknown History extended release suspension syringe (Perseris) trazodone 50 mg tablet 50 mg PO QHS 03/02/24 Unknown History Allergy/AdvReac Type Severity Reaction Status Date / Time No Known Allergies Allergy Verified 04/20/24 13:58 Social History Smoking Status: Current every day smoker tobacco type: cigarettes ROS ROS Narrative Patient suspicious and will not answer ROS Vital Signs Vital Signs Vital Signs: 04/20/24 13:58 Temperature 98 F Temperature Source Temporal Pulse Rate 125 H Respiratory Rate 16 Blood Pressure 147/100 H Blood Pressure Mean 115 Pulse Ox 99 Oxygen Delivery Method Room Air Weight Weight: 109.769 kg Body Mass Index (BMI) 32.8 Physical Exam Narrative General: Alert, oriented, no apparent distress HEENT: Atraumatic, normocephalic Eyes: Anicteric, normal conjunctiva, extraocular movements grossly intact Neck: Supple Respiratory: Clear to auscultation bilaterally, normal respiratory effort Cardiovascular: Regular rate and rhythm GI: Soft, nontender, nondistended Extremities: No edema Musculoskeletal: Moving all extremities Neuro: No overt focal neurological deficits Skin: Has some erythema over left thumb which he says he thinks he might of burned Psych: Suspicious and not answering majority of questions Results Lab / Micro Data 04/20/24 14:53 04/20/24 14:53 Labs: Laboratory Results - last 24 hr 04/20/24 14:45: Urine Color Straw, Urine Clarity Clear, Urine pH 6.5, Ur Specific [place] 1.005, Urine Protein Negative, Urine Glucose (UA) Normal, Urine Ketones Negative, Urine Occult Blood Negative, Urine Nitrite Negative, Urine Bilirubin Negative, Urine Urobilinogen Normal, Ur Leukocyte Esterase Negative, Urine RBC 0 SEEN, Urine WBC 0 SEEN, Ur Squamous Epith Cells 0-5 SEEN, Urine Bacteria 0 SEEN, Urine Mucus 0 SEEN, Urine Opiates Screen NEGATIVE, Urine Methadone Screen NEGATIVE, Ur Barbiturates Screen NEGATIVE, Ur Phencyclidine Scrn NEGATIVE, Ur Amphetamines Screen NEGATIVE, MDMA (Ecstasy) Screen NEGATIVE, U Benzodiazepines Scrn NEGATIVE, Urine Cocaine Screen NEGATIVE, U Cannabinoids Screen NEGATIVE, Ur Drug Screen Comment 04/20/24 14:53: WBC 21.1 H, RBC 4.81, Hgb 14.6, Hct 40.4, MCV 84.0, MCH 30.4, M CHC 36.1 H, RDW Std Deviation 41.5, RDW Coeff of Calos 13.4, Plt Count 282, MPV 10.3, Immature Gran % (Auto) 1.500 H, Neut % (Auto) 82.6 H, Lymph % (Auto) 8.4 L , Saline % (Auto) 6.9, Eos % (Auto) 0.2, Baso % (Auto) 0.4, Absolute Neuts (auto) 17.4 H, Absolute Lymphs (auto) 1.77, Nucleated RBC % 0, Sodium 121 L, Potassium 3.9, Chloride 86 L, Carbon Dioxide 25.0, Anion Gap 9, BUN 5 L, Creatinine 0.84, Estim Creat Clear Calc 148.09, Est GFR (MDRD) Af Amer 130, Est GFR (MDRD) Non-Af 108, BUN/Creatinine Ratio 6.0 L, Glucose 161 H, Calcium 8.7, Ethyl Alcohol < 3.0 Imaging Radiology Impression Chest X-Ray 04/20/24 16:40 IMPRESSION: Retrocardiac opacity which may represent minimal early left lower lobe pneumonia. Electronically Signed: Jonathan Galarza MD at 17:18 EST , Assessment & Plan Assessment/Plan (1) Hyponatremia: PLAN: Plan #Hyponatremia -Patient seems to overall be chronically low however today is down more than usual -Will obtain urine studies and serum osmolality and repeat sodium -Multiple psychiatric medications can cause hyponatremia however it is unclear if patient is taking any psychiatric medications at this time -This could be SIADH versus medication versus psychogenic polydipsia -Further management based on labs -Had fairly recent TSH checked which was within normal limits in February, do not think this needs acutely rechecked # Schizophrenia -Unclear if patient is taking any medications, he is very suspicious and reluctant to answer any questions -Patient pink slipped in the ED -May need psychiatric placement once medically cleared -Case management consult, will need crisis eval once sodium improves -Alcohol and UDS negative -If able to clarify if patient is taking any of his medications can resume, if not may benefit from starting antipsychotic # Leukocytosis -Patient unable to give any focal complaints but UA negative -There is concern on chest x-ray for possible early pneumonia however patient unable to give any history, does not appear short of breath and is not coughing at this time -Will check Pro-Damian, if elevated may benefit from starting antibiotics, if negative can likely just repeat CBC in a.m. and monitor clinically #Tobacco use -Advise cessation -Nicotine replacement available if desired #DVT ppx: Low risk, ambulatory Joana Hairston, MD Time spent in the patient's overall evaluation, decision-making process, review of diagnostic data, adjustment of management, discussion with other providers, nursing and ancillary staff involved in patient's care documentation, 57 Minutes Charges/Coding Visit Charges Inpatient E&M: 11103 Init Hosp L2
--- NOTE | 2024-04-20 17:47 | CM.ED ---
Social Work Psychiatric Assessment Reason for consult: Informant(s): ?Patient and medical record Chief Complaint: Patient presented to the ER after having EMS called due to patient refusing to leave [facility].?? Patient told EMS workers that he ?didn?t feel good?. Once to the ER, patient had a difficult time answering direct questions, instead asking repetitive questions and making repetitive statements.? Patient was unable to sit still in his bed, was rocking back and forth and wringing his hands.? When asked a question, patient would stare at interviewer for an extended period of time without answering, would intermittently grunt a yes or no.? Patient appeared to be responding to internal stimuli and presented as delusional and paranoid.? Patient did deny SI, however does have a history of a suicide attempt by hanging within the last year.? According to [facility] leather production worker, patient has been showing an increase in schizophrenic symptoms over the last several weeks as exhibited by an increase in paranoia and erratic behaviors.? Patient has had a decline in his ability to care for self and secure safe housing. Patient was awarded a guardian on this day due to his recent decompensation.? Per conversation with guardian, patient has recently been described as despondent and depressed.?? Marital/Social History: ?single Living Situation: patient reports living with his mother up until a few days ago.? Has been at a hotel room for the last several nights. Support/Resources: mother, can coverer at [facility];? now has a legal guardian Maximo Garcia through [facility].?Patient currently on probation. History: None Education and Employment History: ?patient reports to graduating from high school Mental Health Treatment/History: Patient is being followed by [facility] where he has a rn case management, Anoop Swanson, and a guardian that was appointed today. Patient has had several inpatient psychiatric hospitalizations, most recently at [facility] (03/10) and [facility] (07/2023); has had other stays at [facility] and [facility].? Patient was unable to answer if he was taking any medications.? According to medical record and [employer] leather production worker, patient has been prescribed Invega however it is unclear when he last received his injection. Triggers/Stressors to mental health: ?unknown Coping Skills: unknown History of Abuse (physical/sexual/verbal/emotional): unknown though per past crisis assessment none was reported. Substance Abuse Current/Historical: per record occasionally drinks alcohol, no illicit drug use Risk to Self/Others: ? Suicidal (thought/plan/intent/attempt): Patient denies any SI currently, was unable to answer further questions related to self-harm or suicidal ideations. Per medical record, patient does have a history of a suicide attempt via hanging within the last year (November 2022).? Access to Lethal Means: Not assessed. ? Homicidal (thought/plan/intent/attempt): Patient denies ? History of Violence (self/others/objects): ?Patient denies, however has had charges related to menacing and domestic violence, both against his mother Appearance/General Behavior: ?patient was disheveled, guarded, piercing eye contact, tensely holding hands together, restless Mood/Affect: suspicious, fearful, anxious, flat Communication Pattern: unable/unwilling to answer most questions, made repetitive statements, asked repetitive questions Thought Process: preoccupied, paranoid;? delayed responses as if responding to internal stimuli, perseverating General Intellectual Functioning:?? below average Judgment: poor Insight: poor Plan: With current presentation, patient would appear to benefit from inpatient psychiatric hospitalization. Social work or crisis to reevaluate when patient is medically cleared. Keysha Jeter, ASSESSMENT TECHNICIAN, [employer]
--- NOTE | 2024-04-20 17:52 | CM.ED ---
Social Work Patient notified that he would be admitted to the medical floor. Patient requested to go to a psychiatric unit, SW explained that we will look into placement when he is medically cleared. Patient then requested that SW contact his mother, patients guardian contacted and gave permission for mother to be called. Patients mother was contacted to update on patient status. Keysha Jeter MSW, BUTTER [employer]
--- NOTE | 2024-04-20 18:21 | CM.ED ---
Social Work Updated patient that his mother has been contacted and will come to visit at around 1300 tomorrow. Patient more talkative than during initial assessment, though still perseverating on being able to smoke and to go to a different hospital where can smoke. Patient requiring boundaries set and reinforcement about what has been told regarding plan of care. Provided patient a copy of his phone number and his mother's phone number in case patient wants to know his number, or to call his mother before she visits tomorrow. -BRIAN Ellsworth
--- NOTE | 2024-04-20 18:48 | ED.RN ---
pt refused to discuss home medications with this RN
[2024-04-20 19:09] LABS: Procalcitonin 0.08 ng/mL (0.00-0.09)
[2024-04-20 19:31] VITALS: BP 131/83; PULSE 100; RESP 18; TEMP 36.6; O2SAT 99
[2024-04-20 20:46] VITALS: BMI 29.1
[2024-04-20 21:03] VITALS: BP 128/86; PULSE 84; RESP 16; TEMP 36.8; O2SAT 99
[2024-04-20 21:20] LABS: Osmolality, Serum 267 mOsm/KG (275-295)
[2024-04-20 21:51] LABS: Anion Gap 7 (5-15); BUN 6 mg/dL (7-18); BUN/Creat Ratio 6.9 RATIO (10-20); Calcium,Total 9.2 mg/dL (8.5-10.1); Chloride 98 mmol/L (98-107); Creatinine, Serum 0.86 mg/dL (0.70-1.30); EST Glomerular Filtration Rate 103 mL/min (>60); Est Glom Filt Rate - Afr Amer 125 mL/min (>60); Glucose 122 mg/dL (74-106); Sodium Level 132 mmol/L (136-145)
[2024-04-20] MEDS: MELATONIN 3 MG TABLET PO (23:08)
[2024-04-20] MEDS: Haloperidol Lactate 5 MG/ML Vial 2 MG IM (23:08)
[2024-04-21 00:06] LABS: Creatinine, Urine (random) < 13.00 mg/dL (NO RANGE EST.)
[2024-04-21 00:38] LABS: Osmolality, Urine 72 mOsm/KG
[2024-04-21 01:12] LABS: Anion Gap 5 (5-15); BUN 4 mg/dL (7-18); BUN/Creat Ratio 5.1 RATIO (10-20); Calcium,Total 8.7 mg/dL (8.5-10.1); Chloride 101 mmol/L (98-107); Creatinine, Serum 0.78 mg/dL (0.70-1.30); EST Glomerular Filtration Rate 116 mL/min (>60); Est Glom Filt Rate - Afr Amer 140 mL/min (>60); Estimated Creatinine Clearance 150.83 ml/min; Glucose 188 mg/dL (74-106); Potassium 3.7 mmol/L (3.5-5.1); Sodium Level 135 mmol/L (136-145)
--- NOTE | 2024-04-21 01:19 | NURSING ---
Late entry: Security in the room. Pt agitated and uncooperative. Pt upset about his fluid restriction. Pt requesting to use the hospital phone to make phone calls. Brought in a cordless phone for pt to make a phone call. Ativan, melatonin, and Haldol given
[2024-04-21 06:01] VITALS: BP 124/78; PULSE 69; RESP 16; TEMP 36.5; O2SAT 97
[2024-04-21 06:11] LABS: Absolute Lymphocyte Count 2.24 X10^3/uL (0.83-4.51); Basophil# 0.06 X10^3/uL; Basophil% 0.7 % (0-1); Eosinophil# 0.14 X10^3/uL; Eosinophils% 1.6 % (0-5); Hematocrit 43.7 % (40-54); Hemoglobin 15.6 g/dL (13.0-16.5); Lymphocyte # 2.24 X10^3/ul (0.83-4.51); Lymphocyte % 25.8 % (19-41); Mean Corp Hgb Conc 35.7 g/dL (32-36); Mean Corpuscular Hgb 30.7 pg (27.0-32.0); Mean Platelet Vol. 10.2 fl (6.2-12.0); Monocyte# 1.08 X10^3/uL; Monocyte% 12.4 % (0-10); NRBC Flagged by Analyzer 0 % (0-5); Neutrophil # 4.98 X10^3/uL (2.7-7.7); Neutrophil % 57.4 % (47-70); Platelet Count 245 K/mm3 (150-450); RBC Distribution Width CV 13.4 % (11.6-14.6); RBC Distribution Width SD 42.1 fl (35.1-43.9); Red Blood Count 5.08 M/mm3 (4.6-6.2); White Blood Count 8.7 K/mm3 (4.4-11.0)
[2024-04-21 06:53] LABS: Anion Gap 6 (5-15); BUN 4 mg/dL (7-18); BUN/Creat Ratio 4.9 RATIO (10-20); Calcium,Total 9.2 mg/dL (8.5-10.1); Chloride 102 mmol/L (98-107); Creatinine, Serum 0.81 mg/dL (0.70-1.30); EST Glomerular Filtration Rate 111 mL/min (>60); Est Glom Filt Rate - Afr Amer 134 mL/min (>60); Estimated Creatinine Clearance 145.24 ml/min; Glucose 123 mg/dL (74-106); Potassium 3.9 mmol/L (3.5-5.1); Sodium Level 136 mmol/L (136-145)
[2024-04-21] MEDS: Ensure Plus High Protein 120 ML LIQUID PO (07:54)
--- NOTE | 2024-04-21 08:43 | PN.HOSP_ITS ---
Reason for Visit Reason for Visit: Diagnoses Hypo-osmolality and hyponatremia (04/20/24) Subjective Subjective Patient is a 43-year-old gentleman with history of underlying schizophrenia who was brought in by the EMS for mental evaluation. He was found to have low sodium levels admitted to regular nursing floor for further management Objective Data Objective Data Vital Signs: Vital Signs Temp Pulse Resp BP Pulse Ox O2 Del Method 97.7 F L 69 16 124/78 H 97 Room Air 04/21/24 06:01 04/21/24 06:01 04/21/24 06:01 04/21/24 06:01 04/21/24 06:01 04/21/24 06:01 Oxygen Delivery Method Room Air Weight: 97.5 kg Body Mass Index (BMI) 29.1 Intake & Output: Intake and Output for Last 24 Hours 04/19/24 04/20/24 04/21/24 23:59 23:59 23:59 Intake Total 560 / 560 40 / 40 Output Total 600 / 600 Balance -40 / -40 40 / 40 Lab / Micro Data 04/21/24 05:50 04/21/24 08:21 Labs: Laboratory Results - last 24 hr 04/20/24 14:45: Urine Color Straw, Urine Clarity Clear, Urine pH 6.5, Ur Specific [place] 1.005, Urine Protein Negative, Urine Glucose (UA) Normal, Urine Ketones Negative, Urine Occult Blood Negative, Urine Nitrite Negative, Urine Bilirubin Negative, Urine Urobilinogen Normal, Ur Leukocyte Esterase Negative, Urine RBC 0 SEEN, Urine WBC 0 SEEN, Ur Squamous Epith Cells 0-5 SEEN, Urine Bacteria 0 SEEN, Urine Mucus 0 SEEN, Urine Opiates Screen NEGATIVE, Urine Methadone Screen NEGATIVE, Ur Barbiturates Screen NEGATIVE, Ur Phencyclidine Scrn NEGATIVE, Ur Amphetamines Screen NEGATIVE, MDMA (Ecstasy) Screen NEGATIVE, U Benzodiazepines Scrn NEGATIVE, Urine Cocaine Screen NEGATIVE, U Cannabinoids Screen NEGATIVE, Ur Drug Screen Comment 04/20/24 14:53: WBC 21.1 H, RBC 4.81, Hgb 14.6, Hct 40.4, MCV 84.0, MCH 30.4, M CHC 36.1 H, RDW Std Deviation 41.5, RDW Coeff of Calos 13.4, Plt Count 282, MPV 10.3, Immature Gran % (Auto) 1.500 H, Neut % (Auto) 82.6 H, Lymph % (Auto) 8.4 L , [place] % (Auto) 6.9, Eos % (Auto) 0.2, Baso % (Auto) 0.4, Absolute Neuts (auto) 17.4 H, Absolute Lymphs (auto) 1.77, Nucleated RBC % 0, Sodium 121 L, Potassium 3.9, Chloride 86 L, Carbon Dioxide 25.0, Anion Gap 9, BUN 5 L, Creatinine 0.84, Estim Creat Clear Calc 148.09, Est GFR (MDRD) Af Amer 130, Est GFR (MDRD) Non-Af 108, BUN/Creatinine Ratio 6.0 L, Glucose 161 H, Serum Osmolality 267 L, Calcium 8.7, Ethyl Alcohol < 3.0 04/20/24 18:20: Procalcitonin 0.08 04/20/24 20:56: Sodium 132 L, Potassium 4.0, Chloride 98, Carbon Dioxide 28.0, Anion Gap 7, BUN 6 L, Creatinine 0.86, Estim Creat Clear Calc 136.80, Est GFR (MDRD) Af Amer 125, Est GFR (MDRD) Non-Af 103, BUN/Creatinine Ratio 6.9 L, G lucose 122 H, Calcium 9.2 04/20/24 23:40: Urine Osmolality 72, Urine Creatinine < 13.00 04/21/24 00:47: Sodium 135 L, Potassium 3.7, Chloride 101, Carbon Dioxide 28.0, Anion Gap 5, BUN 4 L, Creatinine 0.78, Estim Creat Clear Calc 150.83, Est GFR (MDRD) Af Amer 140, Est GFR (MDRD) Non-Af 116, BUN/Creatinine Ratio 5.1 L, G lucose 188 H, Calcium 8.7 04/21/24 05:50: WBC 8.7, RBC 5.08, Hgb 15.6, Hct 43.7, MCV 86.0, MCH 30.7, MCHC 35.7, RDW Std Deviation 42.1, RDW Coeff of [place] 13.4, Plt Count 245, MPV 10.2, I mmature Gran % (Auto) 2.100 H, Neut % (Auto) 57.4, Lymph % (Auto) 25.8, [place] % (Auto) 12.4 H, Eos % (Auto) 1.6, Baso % (Auto) 0.7, Absolute Neuts (auto) 5.0, Absolute Lymphs (auto) 2.24, Nucleated RBC % 0, Sodium 136, Potassium 3.9, Chloride 102, Carbon Dioxide 28.0, Anion Gap 6, BUN 4 L, Creatinine 0.81, Estim Creat Clear Calc 145.24, Est GFR (MDRD) Af Amer 134, Est GFR (MDRD) Non-Af 111, BUN/Creatinine Ratio 4.9 L, Glucose 123 H, Calcium 9.2 Radiography Diagnostic Testing: Radiology Impression Chest X-Ray 04/20/24 16:40 IMPRESSION: Retrocardiac opacity which may represent minimal early left lower lobe pneumonia. Electronically Signed: Jonathan Galarza MD at 17:18 EST , Physical Exam Narrative GENERAL: cooperative HEENT: Atraumatic; normocephalic EYES; Anicteric, Normal Conjunctiva NECK; supple, normal thyroid, RESPIRATORY: Diminished to auscultation CARDIOVASCULAR: Regular S1 S2, GI: soft, normoactive bowel sounds, : No Renal angle tenderness; EXTREMITIES: No edema, no clubbing, MUSCULOSKELETAL: no muscle wasting NEURO: Awake; no lateralizing signs. SKIN: No Rash PSYCH; Flat affect Assessment & Plan Assessment/Plan (1) Hyponatremia: PLAN: Plan Patient is a 43-year-old gentleman with history of underlying schizophrenia who was brought in by the EMS for mental evaluation. He was found to have low sodium levels admitted to regular nursing floor for further management 1. Acute hyponatremia ? They appear to be some chronicity patient however responded rapidly to management initiated on admission sodium levels as of this a.m. 135 3. Schizophrenia ? Status question of patient not being compliant with his medications. Patient was pink slipped in the ED case management has been consulted to assist with placement for possible psych eval Patient is medically stable to be transferred to psych facility for eval 3. Leukocytosis ? Reactive resolved 4. Tobacco dependence ? Counseled on cessation, offered nicotine patch for tobacco cravings 5. DVT prophylaxis low risk Time spent in the patient's overall evaluation, decision-making process, review of diagnostic data, adjustment of management, discussion with other providers, nursing and ancillary staff involved in patient's care documentation, 37 Minutes Charges/Coding Visit Charges Inpatient E&M: 79617 Subs Hosp L2
[2024-04-21 08:55] LABS: Anion Gap 6 (5-15); BUN 4 mg/dL (7-18); BUN/Creat Ratio 4.6 RATIO (10-20); Calcium,Total 9.1 mg/dL (8.5-10.1); Chloride 102 mmol/L (98-107); Creatinine, Serum 0.88 mg/dL (0.70-1.30); EST Glomerular Filtration Rate 102 mL/min (>60); Est Glom Filt Rate - Afr Amer 123 mL/min (>60); Estimated Creatinine Clearance 133.69 ml/min; Glucose 145 mg/dL (74-106); Potassium 4.1 mmol/L (3.5-5.1); Sodium Level 136 mmol/L (136-145)
[2024-04-21 10:17] VITALS: BP 131/76; PULSE 81; RESP 18; TEMP 36.3; O2SAT 99
--- NOTE | 2024-04-21 10:54 | CASEMGMT ---
Social Work Per physician, pt has been medically cleared for evaluation for psychiatric placement. LISA Reeder notified and will assess pt today. CATHIE Perry
--- NOTE | 2024-04-21 12:10 | CM.ED ---
Addendum entered and electronically signed by Lilli Tapia 04/21/24 16:02: See CM tab for updates further SW notes this date - final dispostion: [facility] for inpatient mental health. Aureliano Original Note: Social Work - Mental Health Reassessment 04.21.2024 at 1210 Spoke with CATHIE Bowman on [facility] and patient is now medically cleared to pursue mental health placement. Noted in hospitalist note today, that patient is medically cleared. Met with patient in room, on [facility] where patient was admitted overnight for medical stabilization. Keysha VASQUEZ also present with this hand sign writer. Patient more talkative today as compared to yesterday, still focusing on having cigarettes to smoke as they help me and everyone likes to smoke. Patient was able to share that things are going okay but wants to know when can go somewhere else. Patient reports he wants to go home, referencing his mother's home as this is where all my things are. This hand sign writer gently broached with patient that from what this hand sign writer understands, the patient has not lived at his mothers in about a month now (from what the mother told this hand sign writer on 04.20.2024), just spending the night at the mother's home a few night ago. This hand sign writer also gently broached [facility] seeking guardianship of patient, to help patient with decision making and support. Patient laughed maniacally then, and did not seem to want to engage in this line of conversation, nor open to believing he could have a guardian. Patient does admit he is supposed to be taking an injection for his mental health (patient with diagnosis of paranoid schizophrenia) but unable to say when the last time he was adherent with his medications. Patient indicated still wanting to have someone in the room with him, appearing fearful and anxious about being alone. Risk to Self/Others: ? Suicidal (thought/plan/intent/attempt): Patient denies any current thoughts of suicide. Told social worked that does not want to answer about any historical attempts of suicide, and smiled when giving this answer. ? Access to Lethal Means: Undetermined. ? Homicidal (thought/plan/intent/attempt): Patient denies, while rubbing face with hands and keeping hands over his mouth. ? History of Violence (self/others/objects): Refer to original Mental health assessment done on 04.20.2024. No violence but per nursing notes overnight patient was agitated and uncooperative, resulting in Ativan, melatonin, and Haldol give. Mental Status Exam: ??? Orientation: Patient reports April, It feels like it is 2024 but they say it's 2023, it feels like Thursday but they say it's . ??? Memory: Undetermined. Appearance/General Behavior: hospital gown, disheveled, restless, wringing hands at times, rubbing face and grabbed head in appearance of stopping self from talking. Eye contact still piercing at times. . Mood/Affect: Depressed, Irritable, blunted. Anxious. Inappropriate affect to questions - smiling when asked about SI history and laughing maniacally when guardianship discussed. Communication Pattern: Answering some questions directly today, but at other times grunts answers. Intermittently patient would speak and stop self in the middle of the sentence and struggle to get the rest of the words out to complete sentence. Repetitive questions. Thought Process: Preoccupied, paranoid, fearful, grunted no responses to A/V hallucinations questioning but appears to be responding to internal stimuli as evidenced by I don't want people in... and then grabbed his head and appeared to struggle what to do next, resulting in just staring at the licensed social worker. General Intellectual Functioning:?? below average Judgment: Poor Insight: Poor Plan: Inpatient hospitalization for medication stabilization of related to patient's paranoid schizophrenia and appearing symptoms of psychosis, resulting in impairment of patient being able to meet basic needs. Patient's guardian, indicated on 04.20.2024, support for patient receiving further treatment. -BRIAN Ellsworth
--- NOTE | 2024-04-21 14:46 | CASEMGMT ---
Social work See SW note in ED CM tab for details of mental health reassessment. Plan: Pursuing inpatient mental health treatment for stabilization of psychiatric symptoms. -BRIAN Ellsworth
--- NOTE | 2024-04-21 14:54 | CASEMGMT ---
Social Work [facility] to check on bed availability. Both had beds but neither are a smoking facility. Called [facility] and there are male beds. [facility] is a smoking facility. Due to patient's perseveration about being able to smoke, referral made to [facility], which has potential to accommodate patient's request to smoke. Referral faxed to [phone]. Called patient's guardian Maximo Garcia at [facility] and updated to patient's status and pending referral at [facility]. Guardian remains in agreement with placement. Plan: Pending inpatient mental health treatment. -BRIAN Ellsworth
--- NOTE | 2024-04-21 15:34 | PCM.DC.SUM ---
Providers Date of Admission: 04/20/24 Date of Discharge: 04/21/24 Primary Care Physician: No Primary Care Phys Reason For Visit: HYPONATREMIA Diagnosis Discharge Diagnosis (1) Hyponatremia: Status: Inactive Code(s): E87.1 - Hypo-osmolality and hyponatremia Plan Patient is a 43-year-old gentleman with history of underlying schizophrenia who was brought in by the EMS for mental evaluation. He was found to have low sodium levels admitted to regular nursing floor for further management 1. Acute hyponatremia ? They appear to be some chronicity patient however responded rapidly to management initiated on admission sodium levels as of this a.m. 135 3. Schizophrenia ? Status question of patient not being compliant with his medications. Patient was pink slipped in the ED case management has been consulted to assist with placement for possible psych eval Patient is medically stable to be transferred to psych facility for eval Patient was discharged to an inpatient psych facility once approval was obtained 3. Leukocytosis ? Reactive resolved 4. Tobacco dependence ? Counseled on cessation, offered nicotine patch for tobacco cravings 5. DVT prophylaxis low risk Time spent in the patient's overall evaluation, decision-making process, review of diagnostic data, adjustment of management, discussion with other providers, nursing and ancillary staff involved in patient's care documentation, 37 Minutes Medications at Discharge Home Medications aripiprazole 5 mg tablet 5 mg PO DAILY 03/02/24 hydroxyzine HCl 50 mg tablet 50 mg PO BID PRN PRN UNKNOWN 03/02/24 lisinopril 10 mg tablet 10 mg PO DAILY 03/02/24 risperidone 120 mg subcutaneous extended release suspension syringe (Perseris) 120 mg subcut QMONTH 03/02/24 trazodone 50 mg tablet 50 mg PO QHS 03/02/24 Physical Exam Narrative GENERAL: cooperative HEENT: Atraumatic; normocephalic EYES; Anicteric, Normal Conjunctiva NECK; supple, normal thyroid, RESPIRATORY: Diminished to auscultation CARDIOVASCULAR: Regular S1 S2, GI: soft, normoactive bowel sounds, : No Renal angle tenderness; EXTREMITIES: No edema, no clubbing, MUSCULOSKELETAL: no muscle wasting NEURO: Awake; no lateralizing signs. SKIN: No Rash PSYCH; Flat affect Weight / BMI Weight Weight: 97.5 kg Body Mass Index (BMI) 29.1 ABG / Lab / Microbiology Data 04/21/24 05:50 04/21/24 08:21 Laboratory: Laboratory Results - last 24 hr 04/20/24 14:45: Urine Color Straw, Urine Clarity Clear, Urine pH 6.5, Ur Specific [place] 1.005, Urine Protein Negative, Urine Glucose (UA) Normal, Urine Ketones Negative, Urine Occult Blood Negative, Urine Nitrite Negative, Urine Bilirubin Negative, Urine Urobilinogen Normal, Ur Leukocyte Esterase Negative, Urine RBC 0 SEEN, Urine WBC 0 SEEN, Ur Squamous Epith Cells 0-5 SEEN, Urine Bacteria 0 SEEN, Urine Mucus 0 SEEN 04/20/24 14:53: Serum Osmolality 267 L 04/20/24 18:20: Procalcitonin 0.08 04/20/24 20:56: Sodium 132 L, Potassium 4.0, Chloride 98, Carbon Dioxide 28.0, Anion Gap 7, BUN 6 L, Creatinine 0.86, Estim Creat Clear Calc 136.80, Est GFR (MDRD) Af Amer 125, Est GFR (MDRD) Non-Af 103, BUN/Creatinine Ratio 6.9 L, Glucose 122 H, Calcium 9.2 04/20/24 23:40: Urine Osmolality 72, Urine Creatinine < 13.00 04/21/24 00:47: Sodium 135 L, Potassium 3.7, Chloride 101, Carbon Dioxide 28.0, Anion Gap 5, BUN 4 L, Creatinine 0.78, Estim Creat Clear Calc 150.83, Est GFR (MDRD) Af Amer 140, Est GFR (MDRD) Non-Af 116, BUN/Creatinine Ratio 5.1 L, Glucose 188 H, Calcium 8.7 04/21/24 05:50: WBC 8.7, RBC 5.08, Hgb 15.6, Hct 43.7, MCV 86.0, MCH 30.7, MCHC 35.7, RDW Std Deviation 42.1, RDW Coeff of Calos 13.4, Plt Count 245, MPV 10.2, Immature Gran % (Auto) 2.100 H, Neut % (Auto) 57.4, Lymph % (Auto) 25.8, [place] % (Auto) 12.4 H, Eos % (Auto) 1.6, Baso % (Auto) 0.7, Absolute Neuts (auto) 5.0, Absolute Lymphs (auto) 2.24, Nucleated RBC % 0, Sodium 136, Potassium 3.9, Chloride 102, Carbon Dioxide 28.0, Anion Gap 6, BUN 4 L, Creatinine 0.81, Estim Creat Clear Calc 145.24, Est GFR (MDRD) Af Amer 134, Est GFR (MDRD) Non-Af 111, BUN/Creatinine Ratio 4.9 L, Glucose 123 H, Calcium 9.2 04/21/24 08:21: Sodium 136, Potassium 4.1, Chloride 102, Carbon Dioxide 28.0, Anion Gap 6, BUN 4 L, Creatinine 0.88, Estim Creat Clear Calc 133.69, Est GFR (MDRD) Af Amer 123, Est GFR (MDRD) Non-Af 102, BUN/Creatinine Ratio 4.6 L, Glucose 145 H, Calcium 9.1 Radiography Diagnostic Testing: Radiology Impression Chest X-Ray 04/20/24 16:40 IMPRESSION: Retrocardiac opacity which may represent minimal early left lower lobe pneumonia. Electronically Signed: Jonathan Galarza MD at 17:18 EST , D/C Instructions Discharge Diet: No restrictions Discharge Activity: Return to Normal Activity Call your doctor if you observe: Fever of 101 or Higher, Shortness of breath, Fainting spells and Chest pain DC O2, CPAP, BIPAP Needs Additional Home O2 Discharge instructions: No DC home with Oxygen: No Meaningful Use Info Meaningful Use Meaningful Use Diagnoses (Choose all that apply): None applicable Ischemic Stroke Statin Dosing Therapy Reference: STATIN DOSE THERAPY REFERENCE: * Patients > 75 years receive moderate or high dose statin therapy. * Patients 75 years or YOUNGER should receive HIGH intensity statin dose unless contraindicated. You will be required to document reason for non-treatment if statin daily dose does not meet guidelines. HIGH DOSE STATIN THERAPY DAILY Atorvastatin > than or = to 40 mg Rosuvastatin > than or = to 20 mg Amlodipine + Atorvastatin > than or = to 2.5/40 mg Ezetimibe + Simvastatin 10/80 mg Simvastatin 80mg Discharge Plan Admission Admit Date/Time: 04/20/24 17:46 Attending Provider: Earnest Saldaña Primary Care Provider: Care Physician,No Primary Consulting Providers: Joana Hairston Discharge Orders/Prescriptions Prescriptions: Continued hydroxyzine HCl 50 mg tablet 50 mg PO BID PRN PRN (Reason: UNKNOWN) aripiprazole 5 mg tablet 5 mg PO DAILY lisinopril 10 mg tablet 10 mg PO DAILY trazodone 50 mg tablet 50 mg PO QHS Perseris 120 mg suspension,extended rel syring 120 mg subcut QMONTH Referrals / Follow Up: Care Physician,No Primary [Primary Care Provider] - Disposition Disposition (needs filled in before D/C Order can be placed): Psychiatric Hospital or Unit Charges/Coding Visit Charges Inpatient E&M: 71943 Disch Hosp >30min
--- NOTE | 2024-04-21 15:53 | CASEMGMT ---
Social Work [facility] to accept patient. Dr Erin Stewart accepting provider. Admit to Adult Behavioral Unit. Call report to , option 1. Updated [facility] of accepting information. Faxed [place] slip and letter of guardianship to [facility] at their request. PEDRO Chopra, called guardian Maximo Garcia to update. Updated patient. Patient continues to perseverate on smoking and now if the hospital will provide cigarettes. Patient reports his mother never came to visit. Called patient's mother who reports was told by someone that not allowed to visit until after crisis visit. Confirmed with [facility] and mother can visit. Mother will be to hospital around 1645 and agrees to bring cigarettes for patient to take to [facility]. Mother instructed to leave the cigarettes at the nurses station. Updated patient about impending visit from his mother and mother bringing cigarettes. Patient irritable and insisting that wants to be somewhere that gives community cigarettes. Set boundary with patient that his mother is bringing some to take to the hosptial and that the plan is not changing despite whether [facility] offers community cigarettes or not. Plan: [facility] for inpatient mental health. No other services requested or indicated. Nursing to schedule transport for hospital to hospital transfer. -BRIAN Ellsworth
[2024-04-21 16:15] VITALS: BP 131/89; PULSE 78; RESP 18; TEMP 36.6; O2SAT 97
[2024-04-21 20:19] VITALS: BP 146/85; PULSE 81; RESP 18; TEMP 36.7; O2SAT 98
[2024-04-21] MEDS: MELATONIN 3 MG TABLET PO (20:23)
[2024-04-21] MEDS: LORazepam 1 MG Tablet PO (20:23)
== END 2024-04-21 21:20 | DRG 641 ==
LOC: ED 18:20 → MS3 20:08
PROVIDERS: Admitting Provider Internal Medicine; Emergency Provider Emergency Medicine; Visit Provider Internal Medicine
DX: E87.1 Hypo-osmolality and hyponatremia (principal); F20.0 Paranoid schizophrenia; D72.829 Elevated white blood cell count, unspecified; F17.210 Nicotine dependence, cigarettes, uncomplicated; Z79.899 Other long term (current) drug therapy
CPT/HCPCS: 36415; 71046; 80048; 80307; 81001; 82077; 82570; 83930; 83935; 84145; 85025; 97802; 99285; A4216